=== PATIENT | male | born 1985 | race Caucasian/White ===

== ENCOUNTER 2022-06-03 12:45 | Emergency (ER) | payer OTHER ==
[~2022-06-03] VITALS: Ht 195.6 cm; Wt 152.0 kg
[2022-06-03] MEDS ORDERED: SODIUM CHLORIDE 0.9% 1000ML 1,000 ML IV STA (13:00)
[2022-06-03] MEDS ORDERED: ONDANSETRON HCL INJ 2MG/ML 2ML 2 MG/ML VIAL IV ONE (13:00)
[2022-06-03] MEDS ORDERED: KETOROLAC TROMETHAMINE 30 MG/ML VIAL IV ONE (13:00)
[2022-06-03] MEDS ORDERED: KETOROLAC TROMETHAMINE 30 MG/ML VIAL ONE (13:23)
[2022-06-03] MEDS ORDERED: ONDANSETRON HCL INJ 2MG/ML 2ML 2 MG/ML VIAL ONE (13:23)
[2022-06-03] MEDS ORDERED: SODIUM CHLORIDE 0.9% 1000ML 1,000 ML ONE (13:23)
[2022-06-03] MEDS ORDERED: METRONIDAZOLE500 MG PO (14:09)
[2022-06-03] MEDS ORDERED: ACETAMINOPHEN500 MG PO (14:09)
[2022-06-03] MEDS ORDERED: LEVOFLOXACIN500 MG PO (14:09)
== END 2022-06-03 14:21 | disposition home or self-care (01) ==
LOC: FSED 12:52
DX: R10.12 Left upper quadrant pain (principal); R10.32 Left lower quadrant pain; K57.32 Diverticulitis of large intestine without perforation or abscess without bleeding; D72.829 Elevated white blood cell count, unspecified
CPT/HCPCS: 74176; 80053; 81003; 85025; 99284; J1885; J2405; J7030